=== PATIENT | female | born 1985 | race Two or more races ===

== ENCOUNTER 2024-03-19 17:20 | Emergency (ER) | payer OTHER ==
[~2024-03-19] VITALS: Ht 170.2 cm; Wt 115.7 kg
[2024-03-19 18:00] VITALS: BP 120/82; O2SAT 99
[2024-03-19] MEDS ORDERED: IBU600 MG PO (23:28)
== END 2024-03-20 00:11 | disposition home or self-care (01) ==
LOC: ER 17:22
DX: S60.212A Contusion of left wrist, initial encounter (principal); W19.XXXA Unspecified fall, initial encounter; Y93.89 Activity, other specified; Y92.89 Other specified places as the place of occurrence of the external cause; Y99.9 Unspecified external cause status